=== PATIENT | male | born 1970 | race Hispanic/Latino ===

== ENCOUNTER 2019-12-26 10:27 | Day surgery (SDC) | payer BC ==
[2019-12-26] MEDS: Polymyxin B/Trimethoprim 10 ML Bottle EYELF SCH ×4 (10:36→12:34)
[2019-12-26] MEDS: Brimonidine 0.2% Ophth Soln 5 ML Bottle EYELF SCH ×4 (10:41→12:34)
[2019-12-26] MEDS: Phenylephrine 2.5% Ophth Soln 2 ML Bot EYELF SCH ×6 (10:46→12:07)
[2019-12-26] MEDS: Tropicamide 1% Ophth Soln 15 ML Bottle EYELF SCH ×4 (10:51→11:36)
--- NOTE | 2019-12-26 11:29 | PCM.PREANE ---
Preanesthetic Assessment - Procedure Proposed Procedure: left cataract - Anesthesia/Transfusion/Family Hx Anesthesia History: Prior Anesthesia Without Reaction Family History of Anesthesia Reaction: No Transfusion History: No Prior Transfusion(s) - Review of Systems General: No Symptoms Pulmonary: No Symptoms Cardiovascular: No Symptoms Gastrointestinal: No Symptoms Neurological: No Symptoms Other: Reports: None - Physical Assessment NPO Status Date: 12/25/19 NPO Status Time: 23:00 Vital Signs: 111/64 57 98% 16 97.1 Height: 5 ft 5 in Weight: 81.647 kg ASA Class: 1 Mental Status: Alert & Oriented x3 Airway Class: Mallampati = 1 Dentition: Reports: Normal Dentition Thyro-Mental Finger Breadths: 3 Mouth Opening Finger Breadths: 3 ROM/Head Extension: Full Lungs: Clear to Auscultation, Normal Respiratory Effort Cardiovascular: Regular Rate, Regular Rhythm - Blood Blood Available: No - Acknowledgements Anesthesia Type Planned: MAC Pt an Appropriate Candidate for the Planned Anesthesia: Yes Alternatives and Risks of Anesthesia Discussed w Pt/Guardian: Yes Pt/Guardian Understands and Agrees with Anesthesia Plan: Yes PreAnesthesia Questionnaire Cardiovascular History: Reports: None Respiratory History: Reports: None - Past Surgical History HEENT Surgical History: Reports: Cataract Surgery, Other (See Below) (left eye) - SUBSTANCE USE Smoking Status *Q: Never Smoker Tobacco Use Within Last Twelve Months: No Second Hand Smoke Exposure: No Days Per Week of Alcohol Use: 1 Recreational Drug Use History: No - CURRENT (IN HOUSE) MEDS Current Meds: Current Medications Brimonidine Tartrate (Alphagan 0.2% Oph Soln) 1 ml EYELF TID NIXON Stop: 12/26/19 23:00 Cefuroxime Sodium (Zinacef) 0 mg EYELF ASDIRECTED NIXON Lidocaine HCl (Xylocaine 1%) 1 ml INJECT ASDIRECTED NIXON Phenylephrine HCl (Milton-Synephrine 2.5% Oph Soln) 0 ml EYELF ASDIRECTED NIXON Pilocarpine HCl (Pilocar 4% Ophth Soln) 0 ml EYELF ONETIME NIXON Polymyxin/Trimethoprim Sulfate (Polytrim Ophth Soln) 1 ml EYELF ONETIME NIXON Tetracaine HCl (Tetracaine 0.5% Steri-Unit Ivette) 1 ml EYELF ASDIRECTED NIXON Tropicamide (Mydriacyl 1% Oph Soln) 1 ml EYELF ONETIME NIXON
[2019-12-26] MEDS: Lidocaine 1% PF 2 ML SDV INJECT SCH ×2 (11:31→12:23)
[2019-12-26] MEDS: Tetracaine HCl/PF 0.5% 4 ML Bottle EYELF SCH ×3 (11:52→12:23)
[2019-12-26] MEDS: Cefuroxime 10 MG/ML SYRINGE EYELF SCH ×2 (11:52→12:34)
[2019-12-26] MEDS: Pilocarpine 4% Ophth Soln 15 ML Bot EYELF SCH ×2 (11:55→12:34)
--- NOTE | 2019-12-26 12:16 | PCM48HPAN ---
Post Anesthesia Note - EVALUATION WITHIN 48HRS OF ANESTHETIC Vital Signs in Normal Range: Yes Patient Participated in Evaluation: Yes Respiratory Function Stable: Yes Airway Patent: Yes Cardiovascular Function Stable: Yes Hydration Status Stable: Yes Pain Control Satisfactory: Yes Nausea and Vomiting Control Satisfactory: Yes Mental Status Recovered: Yes Vital Signs: Last Vital Signs Temp 97.1 F 12/26/19 10:25 Pulse 57 L 12/26/19 10:25 Resp 16 12/26/19 10:25 BP 111/64 12/26/19 10:25 Pulse Ox 98 12/26/19 10:25
== END 2019-12-26 12:45 | disposition home or self-care (01) ==
LOC: JD.SDS 10:27
PROVIDERS: ATTEND Ophthalmology
DX: H25.812 Combined forms of age-related cataract, left eye (principal); H16.103 Unspecified superficial keratitis, bilateral; H16.223 Keratoconjunctivitis sicca, not specified as Sjogren's, bilateral; Z96.1 Presence of intraocular lens; Z98.41 Cataract extraction status, right eye
CPT/HCPCS: 66984; C1780; J0697; J2001